=== PATIENT | female | born 1990 | race Two or more races ===

== ENCOUNTER 2017-01-24 20:06 | Emergency (ER) | payer BC, OTHER ==
[~2017-01-24] VITALS: Ht 165.1 cm; Wt 70.8 kg
--- NOTE | 2017-01-24 20:15 | NUR ---
PT BRIB [facility] 89 FROM HOME, C/O PAIN SOB X 3 HOURS, PT A/O X 4, BREATHING EVEN/UNLABORED, AUDIBLE WHEEZING WITH EXPIRATION, C/O 5/10 PAIN TO LEFT BACK RADIATIED TO L RIBS, PT STATES "I HAVE HX OF LUNG TUNORS, THEY DID A LOBECTOMY IN 06/2016" SKIN WARM/DRY/INTACT, OXYGEN SAT RA 96%
[2017-01-24] MEDS ORDERED: MORPHINE SULFATE INJ 2 MG/ML DISP.SYRIN IV ONE (20:30)
[2017-01-24] MEDS ORDERED: ONDANSETRON HCL/PF 4 MG/2 ML VIAL IVP ONE (20:30)
[2017-01-24] MEDS ORDERED: IPRATROPIUM NEB FS 0.5 MG/2.5 ML AMPUL.NEB NEB ONE (20:30)
[2017-01-24] MEDS ORDERED: ALBUTEROL FS 2.5 MG/3 ML VIAL.NEB NEB ONE (20:30)
[2017-01-24 20:42] LABS: BASOPHILS # (AUTO) 0.1 /CMM (0.0-0.2); BASOPHILS % (AUTO) 0.5 % (0.0-2.0); EOSINOPHILS # (AUTO) 0.4 /CMM (0.0-0.7); EOSINOPHILS % (AUTO) 3.2 % (0.0-6.0); HEMATOCRIT 41 % (33-45); HEMOGLOBIN 13.7 g/dL (11.5-14.8); LYMPHOCYTES # (AUTO) 3.3 /CMM (0.8-4.8); LYMPHOCYTES % (AUTO) 29.7 % (20.0-44.0); MEAN CORPUSCULAR HEMOGLOBIN 29 PG (26.0-33.0); MEAN CORPUSCULAR HGB CONC 34 g/dl (31.0-36.0); MEAN CORPUSCULAR VOLUME 86 fL (82-100); MONOCYTES # (AUTO) 0.7 /CMM (0.1-1.30); MONOCYTES % (AUTO) 6.7 % (2.0-12.0); NEUTROPHILS # (AUTO) 6.5 /CMM (1.8-8.9); NEUTROPHILS % (AUTO) 59.9 % (43.0-81.0); PLATELET COUNT (AUTO) 349 /CMM (150-450); RDW COEFFICIENT OF VARIATION 13.7 (11.5-15.0); RED BLOOD CELL COUNT(AUTO) 4.74 MIL/uL (4.0-5.2)
[2017-01-24 20:51] LABS: CALCIUM, SERUM 9.3 mg/dL (8.5-10.1); CREATININE 0.8 mg/dL (0.6-1.3); POTASSIUM 3.4 mmol/L (3.5-5.1)
[2017-01-24] MEDS ORDERED: ONDANSETRON HCL/PF 4 MG/2 ML VIAL ONE (21:02)
[2017-01-24] MEDS ORDERED: MORPHINE SULFATE INJ 10 MG/ML DISP.SYRIN ONE ×2 (21:04→21:16)
--- NOTE | 2017-01-24 21:14 | NUR ---
RT NOTIFIED FOR BREATHING TX
[2017-01-24] MEDS ORDERED: IPRATROPIUM NEB FS 0.5 MG/2.5 ML AMPUL.NEB ONE (21:35)
[2017-01-24] MEDS ORDERED: ALBUTEROL FS 2.5 MG/3 ML VIAL.NEB ONE (21:35)
--- NOTE | 2017-01-24 21:38 | NUR ---
RT BEDSIDE AT THIS TIME
[2017-01-24] MEDS ORDERED: IV NS 0.9% 250 ML IV ONE (21:45)
[2017-01-24] MEDS ORDERED: CT SWABBABLE VALVE TRANS SET 1 EA INFUS.SET MC ONE (21:45)
[2017-01-24] MEDS ORDERED: IOHEXOL-350 100 ML VIAL IV ONE (21:45)
--- NOTE | 2017-01-24 21:48 | NUR ---
FOR CTA CHEST, AWAITING HCG ORDER RN NOTIFIED
[2017-01-24] MEDS ORDERED: HYDROCODONE BIT/HOMATROPINE 5 ML UDC PO ONE (22:00)
[2017-01-24] MEDS ORDERED: HYDROCODONE BIT/HOMATROPINE 5 ML UDC ONE (22:10)
[2017-01-24 23:56] VITALS: BP 118/71
== END 2017-01-24 23:58 | disposition home or self-care (01) ==
LOC: ER 20:07
DX: R09.1 Pleurisy (principal); R05 Cough; R91.8 Other nonspecific abnormal finding of lung field; Z98.890 Other specified postprocedural states; Z91.010 Allergy to peanuts
CPT/HCPCS: 36415; 71010; 71275; 80048; 84702; 85025; 94640; 96374; 96375; 99285; A4606; J2270 ×2; J2405; J7050; Q9967; Z7610